=== PATIENT | female | born 1970 | race Caucasian/White ===

== ENCOUNTER → 2016-07-31 | Outpatient (CLI) | payer OTHER ==
--- OUTSIDE RECORDS SUMMARY | 2016-07-31 08:36 | XMS REPORT | Continuity of Care Document ---
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 Visit Date/Time Discharge Status Pt. Type Provider Facility Loc./Unit Complaint [id number] 07/03/2014 14:48:00 07/03/2014 23: 59:59 CLS Outpatient FLACO RUBI APRN [id number] 03/02/2014 08:06:00 03/02/2014 23: 59:59 CLS Outpatient NALLELY HOLLINGSWORTH APRN
--- NOTE | 2016-07-31 14:10 | Diagnostic Imaging Report ---
EXAMINATION: Bilateral diagnostic mammogram with a Computer Aided Detection (CAD) system. INDICATION: Breast mass. COMPARISON: 07/21/2015. FINDINGS: The breasts are composed of heterogeneously dense parenchyma which may decrease mammographic sensitivity. Circumscribed masses that appear less prominent in the right breast and a stable similar lesion in the retroareolar area of the left breast are suggestive of cysts or fibroadenomas. A biopsy clip near the retroareolar region is noted. Specifically, the retroareolar region mass on the left side was biopsied and pathology demonstrated a fibroadenoma. Numerous calcifications are seen with layering noted on the true lateral view, suggestive of milk of calcium components in some areas. IMPRESSION: Extremely dense breast parenchyma with no definitive suspicious mass. An ultrasound evaluation is pending. ACR BI-RADS Category 0: Incomplete. (Needs additional imaging evaluation). Result letter will be mailed to the patient. Note: At least 10% of breast cancer is not imaged by mammography. Dictated by: Dictated on workstation # [id number]
--- NOTE | 2016-07-31 14:19 | Diagnostic Imaging Report ---
EXAMINATION: Bilateral breast ultrasound. INDICATION: Bilateral breast lumps. FINDINGS: In the left breast at the 1 o'clock zone, there is a solid mass measuring 1.5 x 0.6 x 0.9 cm, compatible with a biopsy-proven fibroadenoma without significant change in size. This is located close to the nipple. There is an adjacent hypoechoic lesion with no internal vascularity and smooth margins with increased through transmission seen measuring 1 cm, suggestive of a complicated cyst. The right breast demonstrates a simple appearing cyst measuring 3.4 x 1 x 2.5 cm at the 9 o'clock zone 5 cm from the nipple. The four-quadrant retroareolar region of each breast was scanned with no underlying abnormality seen otherwise. 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 The right breast demonstrates no significant abnormality. A 6 month followup left breast ultrasound to ensure stability of the new lesion adjacent to the fibroadenoma, presumably a complicated the cyst, would be recommended. ACR BI-RADS Category 3: Probably benign findings. Dictated by: Dictated on workstation # [id number]
== END ==
LOC: RAD 08:32
PROVIDERS: ATTEND Nurse Practitioner Family
DX: N63 Unspecified lump in breast (principal)
CPT/HCPCS: 77066

== ENCOUNTER → 2020-05-19 | Outpatient (CLI) | payer SELFPAY ==
--- NOTE | 2020-05-19 13:12 | Diagnostic Imaging Report ---
PROCEDURE: US Thyroid. TECHNIQUE: Multiple real-time grayscale images were obtained of the thyroid in various projections. INDICATION: Right thyroid nodule. COMPARISON: 06/14/2011 FINDINGS: The right thyroid lobe is mildly prominent, measuring 5.3 x 2.0 x 2.6 cm. The background echogenicity is heterogeneous and vascularity appears mildly increased. There is a large heterogeneous mostly solid nodule in the mid to inferior right thyroid which measures up to 3.6 x 2.8 x 2.0 cm in size. There are internal calcifications. In the superior right thyroid there is an additional heterogeneous mostly solid nodule measuring 1.3 x 0.8 x 1.0 cm. The prior ultrasound in 2011 did not individually measure the nodules, but overall this appears stable since that time. The left thyroid is small measuring 2.6 x 0.7 x 0.7 cm. No nodules are seen. The isthmus is normal in thickness measuring 2 mm. IMPRESSION: 1. Two heterogeneous nodules in the right thyroid. The larger nodule would normally qualify for FNA, however it appears to be stable in size compared to 06/14/2011. Dictated by: Dictated on workstation # [id number]
== END ==
LOC: RAD 11:15
PROVIDERS: ATTEND Nurse Practitioner Family
DX: E04.2 Nontoxic multinodular goiter (principal)
CPT/HCPCS: 76536

== ENCOUNTER → 2020-06-24 | Outpatient (CLI) | payer OTHER | LOC: RAD 15:27 | PROVIDERS: ATTEND Nurse Practitioner Family | DX: Z12.31 Encounter for screening mammogram for malignant neoplasm of breast (principal) ==